=== PATIENT | female | born 1980 | race Caucasian/White ===

== ENCOUNTER 2022-06-16 11:47 | Emergency (ER) | payer MEDICAID, SELFPAY ==
[2022-06-16 11:49] VITALS: BP 144/91; PULSE 105; RESP 14; TEMP 36.4; O2SAT 97; BMI 41.6
--- NOTE | 2022-06-16 12:03 | RAD_ITS ---
EXAM: XR LUMBOSACRAL SPINE, 2 OR 3 VIEWS CLINICAL INDICATION: pain TECHNIQUE: Frontal and lateral views of the lumbar spine and sacrum. This report was created using [employer] report generation technology. COMPARISON: None. FINDINGS: VERTEBRAE: L4 limbus vertebra noted. Preserved vertebral body height. No fracture. No spondylolisthesis. Preservation of the normal lumbar lordosis. No significant facet arthropathy. DISC SPACES: No acute findings. Disc spaces are maintained. RAD/Lumbar Spine 2 or 3 Views IMPRESSION: L4 limbus vertebra which may be developmental or related to remote trauma. Electronically Signed: Shiv Rogers MD at 12:41 EDT ,
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
[2022-06-16] MEDS: Ibuprofen 600 MG Tablet PO (12:11)
[2022-06-16] MEDS: diazePAM 5 MG Tablet PO (12:12)
== END 2022-06-16 13:01 | disposition home or self-care (01) ==
PROVIDERS: Emergency Provider Emergency Medicine; Visit Provider Emergency Medicine
DX: S39.012A Strain of muscle, fascia and tendon of lower back, initial encounter (principal); F41.9 Anxiety disorder, unspecified; Z79.899 Other long term (current) drug therapy; X58.XXXA Exposure to other specified factors, initial encounter
CPT/HCPCS: 72100; 99283